=== PATIENT | male | born 1965 | race Caucasian/White ===

== ENCOUNTER 2020-11-15 03:06 | Emergency (ER) | payer OTHER ==
--- NOTE | 2020-11-15 03:33 | EDM.PDOC ---
ED HPI GENERAL MEDICAL PROBLEM - General Chief Complaint: Neurological Problem Stated Complaint: neuro problem Time Seen by Provider: 11/15/20 03:12 Source of Information: Reports: Patient, Family History Limitations: Reports: Other (Patient cannot recall incident) - History of Present Illness INITIAL COMMENTS - FREE TEXT/NARRATIVE: Patient brought here by EMS after having what appeared to be a generalized tonic/clonic seizure while in bed at home. witnessed event. Lasted several minutes. Was relatively unresponsive until EMS arrived around 30-45 min later. Post-ictal like behavior per EMS. By time he arrived to ER he was oriented to self/knew date/knew but still unable to say year/month. No history of seizures. Normal day for him yesterday. Denies any recent health changes/trauma/hitting head. Says he is healthy. No history of drug use. - Related Data Allergies Allergy/AdvReac Type Severity Reaction Status Date / Time No Known Allergies Allergy Verified 11/15/20 03:09 Home Meds: Home Meds . [No Known Home Meds] 11/15/20 [History] Past Medical History - Past Health History Medical/Surgical History: Denies Medical/Surgical History Social & Family History - Tobacco Use Tobacco Use Status *Q: Current Every Day Tobacco User Tobacco Use Within Last Twelve Months: Smokeless Tobacco - Caffeine Use Caffeine Use: Reports: Coffee - Alcohol Use Alcohol Use Frequency: Daily (1-2 daily beers) - Recreational Drug Use Recreational Drug Use: No Drug Use in Last 12 Months: No ED ROS GENERAL - Review of Systems Review Of Systems: Comprehensive ROS is negative, except as noted in HPI. ED EXAM, GENERAL - Physical Exam Exam: See Below Exam Limited By: No Limitations General Appearance: Alert, WD/WN, No Apparent Distress Eye Exam: Bilateral Eye: EOMI, PERRL Ears: Normal External Exam, Normal Canal, Hearing Grossly Normal Nose: No: Nasal Deformity, Nasal Swelling, Nasal Drainage Throat/Mouth: Normal Lips, Normal Voice, No Airway Compromise, Other (bite injury to tongue) Head: Atraumatic, Normocephalic Neck: Normal Inspection, Supple, Non-Tender, Full Range of Motion Respiratory/Chest: No Respiratory Distress, Lungs Clear, Normal Breath Sounds, No Accessory Muscle Use Cardiovascular: Regular Rate, Rhythm, No Edema, No Murmur GI/Abdominal: Soft, Non-Tender, No Distention, Pelvis Stable (Male) Exam: Deferred Rectal (Males) Exam: Deferred Back Exam: Normal Inspection Extremities: Normal Inspection, Normal Range of Motion, Non-Tender, No Pedal Edema, Normal Capillary Refill Neurological: Alert, Oriented, CN II-XII Intact, Normal Cognition, No Motor/Sensory Deficits, Other (reflexes 1/4) Psychiatric: Normal Affect Skin Exam: Warm, Dry, Intact, Normal Color Course - Vital Signs Last Recorded V/S: Last Vital Signs Temp 36.8 C 11/15/20 03:10 Pulse 75 11/15/20 06:41 Resp 15 11/15/20 06:41 BP 124/76 11/15/20 06:41 Pulse Ox 98 11/15/20 06:41 - Orders/Labs/Meds Orders: Active Orders 24 hr Category Date Time Status Head wo Cont [CT] Stat Exams 11/15/20 03:14 Taken Sodium Chloride 0.9% [Normal Saline] 500 ml Med 11/15/20 03:45 Active IV .BOLUS Medication Orders Sodium Chloride (Normal Saline) 500 mls @ 125 mls/hr IV .BOLUS NARCISO Last Admin: 11/15/20 03:50 Dose: 125 mls/hr Documented by: DEV Labs: Laboratory Tests 11/15/20 11/15/20 11/15/20 Range/Units 03:20 03:20 03:20 WBC 6.7 (4.0-10.2) K/uL RBC 4.69 (4.33-5.41) M/uL Hgb 16.0 (13.1-16.8) g/dL Hct 43.5 (39.0-49.0) % MCV 92.8 (84.0-98.0) fL MCH 34.1 H (28.2-33.3) pg MCHC 36.8 H (31.7-36.0) g/dL RDW 11.7 (11.2-14.1) % Plt Count 160 (150-350) K/uL Neut % (Auto) 68.8 (45.0-80.0) % Lymph % (Auto) 14.6 (10.0-50.0) % [place] % (Auto) 9.6 (2.0-14.0) % Eos % (Auto) 6.3 H (0.0-5.0) % Baso % (Auto) 0.7 (0.0-2.0) % Neut # (Auto) 4.61 (1.40-7.00) K/uL Lymph # (Auto) 0.98 (0.50-3.50) K/uL [place] # (Auto) 0.64 (0.00-1.00) K/uL Eos # (Auto) 0.42 (0.00-0.50) K/uL Baso # (Auto) 0.05 (0.00-0.20) K/uL Sodium 140 (136-145) mmol/L Potassium 4.3 (3.5-5.1) mmol/L Chloride 105 (98-107) mmol/L Carbon Dioxide 28.8 (21.0-32.0) mmol/L Anion Gap 6.2 L (7-15) meq/L BUN 17 (7-18) mg/dL Creatinine 1.13 (0.51-1.17) mg/dL Est Cr Clr Drug Dosing TNP Estimated GFR (MDRD) > 60 mL/min Glucose 92 (70-99) mg/dL Lactic Acid 1.2 (0.4-2.0) mmol/L Calcium 8.8 (8.5-10.1) mg/dL Magnesium 2.1 (1.8-2.4) mg/dL Total Bilirubin 0.6 (0.2-1.0) mg/dL AST 21 (15-37) U/L ALT 32 (12-78) U/L Alkaline Phosphatase 71 (46-116) IU/L Total Protein 6.6 (6.4-8.2) g/dL Albumin 3.8 (3.4-5.0) g/dL Specimen Type Urine Color Urine Appearance Urine pH (5.0-9.0) Ur Specific [place] (1.005-1.030) Urine Protein (NEGATIVE) mg/dL Urine Glucose (UA) (NEGATIVE) mg/dL Urine Ketones (NEGATIVE) mg/dL Urine Occult Blood (NEGATIVE) Urine Nitrite (NEGATIVE) Urine Bilirubin (NEGATIVE) Urine Urobilinogen (0.2-1.0) E.U./dL Ur Leukocyte Esterase (NEGATIVE) Urine RBC /HPF Urine WBC /HPF Ur Epithelial Cells /LPF Urine Bacteria (NONE TO FEW) /HPF Urine Other 11/15/20 Range/Units 03:30 WBC (4.0-10.2) K/uL RBC (4.33-5.41) M/uL Hgb (13.1-16.8) g/dL Hct (39.0-49.0) % MCV (84.0-98.0) fL MCH (28.2-33.3) pg MCHC (31.7-36.0) g/dL RDW (11.2-14.1) % Plt Count (150-350) K/uL Neut % (Auto) (45.0-80.0) % Lymph % (Auto) (10.0-50.0) % [place] % (Auto) (2.0-14.0) % Eos % (Auto) (0.0-5.0) % Baso % (Auto) (0.0-2.0) % Neut # (Auto) (1.40-7.00) K/uL Lymph # (Auto) (0.50-3.50) K/uL [place] # (Auto) (0.00-1.00) K/uL Eos # (Auto) (0.00-0.50) K/uL Baso # (Auto) (0.00-0.20) K/uL Sodium (136-145) mmol/L Potassium (3.5-5.1) mmol/L Chloride (98-107) mmol/L Carbon Dioxide (21.0-32.0) mmol/L Anion Gap (7-15) meq/L BUN (7-18) mg/dL Creatinine (0.51-1.17) mg/dL Est Cr Clr Drug Dosing Estimated GFR (MDRD) mL/min Glucose (70-99) mg/dL Lactic Acid (0.4-2.0) mmol/L Calcium (8.5-10.1) mg/dL Magnesium (1.8-2.4) mg/dL Total Bilirubin (0.2-1.0) mg/dL AST (15-37) U/L ALT (12-78) U/L Alkaline Phosphatase (46-116) IU/L Total Protein (6.4-8.2) g/dL Albumin (3.4-5.0) g/dL Specimen Type Urinblad Urine Color Yellow Urine Appearance Cloudy Urine pH 6.5 (5.0-9.0) Ur Specific [place] 1.025 (1.005-1.030) Urine Protein 30 H (NEGATIVE) mg/dL Urine Glucose (UA) Negative (NEGATIVE) mg/dL Urine Ketones Negative (NEGATIVE) mg/dL Urine Occult Blood Small H (NEGATIVE) Urine Nitrite Negative (NEGATIVE) Urine Bilirubin Negative (NEGATIVE) Urine Urobilinogen 0.2 (0.2-1.0) E.U./dL Ur Leukocyte Esterase Negative (NEGATIVE) Urine RBC 0-5 /HPF Urine WBC 0-5 /HPF Ur Epithelial Cells Not seen /LPF Urine Bacteria Not seen (NONE TO FEW) /HPF Urine Other See note H Meds: Medications Generic Name Dose Route Start Last Admin Trade Name Freq PRN Reason Stop Dose Admin Sodium Chloride 500 mls @ 125 mls/hr 11/15/20 03:45 11/15/20 03:50 Normal Saline IV 125 mls/hr .BOLUS NARCISO Administration - Re-Assessments/Exams Free Text/Narrative Re-Assessment/Exam: 11/15/20 03:33 Patient able to transfer well but a little wobbly when he first stood up from bed. Basic labs and CT of head ordered and unremarkable. Observe in ER. Patient refused observation admission 11/15/20 08:52 Patient monitored for rest of night. No acute changes noted. No new seizure activity. Vital signs stable. No specific cause for the isolated seizure identified at this time. OK to return home. Precautions reviewed. Follow up appointment with at clinic confirmed for Wednesday of next week. Patient to continue to observe for changes and is to follow up in ER if he has any acute changes/concerns. Departure - Departure Time of Disposition: 08:50 Disposition: Home, Self-Care 01 Condition: Good Clinical Impression: Seizure - Discharge Information *PRESCRIPTION DRUG MONITORING PROGRAM REVIEWED*: Not Applicable *COPY OF PRESCRIPTION DRUG MONITORING REPORT IN PATIENT CAT[place]: Not Applicable Instructions: Seizure, Adult Referrals: PCP,None [Primary Care Provider] - Forms: ED Department Discharge Additional Instructions: Take it easy. Follow up Wednesday at 2:30pm with and our [facility] clinic. Arrive early 15 min early. She can get you situated with a plan to obtain an EEG/referral to Neurology and possible MRI if indicated. Return to ER if you have sudden problems. No driving until you are cleared by . Sepsis Event Note (ED) - Evaluation Sepsis Screening Result: No Definite Risk - Focused Exam Vital Signs: Vital Signs Temp Pulse Resp BP Pulse Ox 11/15/20 06:41 75 15 124/76 98 11/15/20 05:43 67 12 113/64 98 11/15/20 04:00 74 16 128/85 97 11/15/20 03:10 36.8 C 94 13 143/71 H 93 L - My Orders Last 24 Hours: My Active Orders 11/15/20 03:14 Head wo Cont [CT] Stat 11/15/20 03:45 Sodium Chloride 0.9% [Normal Saline] 500 ml IV .BOLUS - Assessment/Plan Last 24 Hours: My Active Orders 11/15/20 03:14 Head wo Cont [CT] Stat 11/15/20 03:45 Sodium Chloride 0.9% [Normal Saline] 500 ml IV .BOLUS
[2020-11-15 03:45] LABS: ANION GAP 6.2 meq/L (7-15); CHLORIDE,CL 105 mmol/L (98-107); SODIUM,NA 140 mmol/L (136-145)
[2020-11-15] MEDS: Sodium Chloride 0.9% 500 ML IV SCH (03:50)
== END 2020-11-15 09:15 | disposition home or self-care (01) ==
LOC: LL.ED 03:06
DX: R56.9 Unspecified convulsions (principal); Z72.0 Tobacco use
CPT/HCPCS: 36415; 70450; 80053; 81001; 83605; 83735; 85025; 99285; J7040; 99284

== ENCOUNTER 2021-01-08 22:54 | Observation (INO) | payer OTHER ==
[2021-01-08] MEDS ORDERED: Sodium Chloride 0.9% 10 ML Syringe FLUSH PRN (23:43)
--- NOTE | 2021-01-08 23:58 | EDM.PDOC ---
ED HPI GENERAL MEDICAL PROBLEM - General Chief Complaint: Neurological Problem Stated Complaint: seizure Time Seen by Provider: 01/08/21 23:30 Source of Information: Reports: Patient History Limitations: Reports: No Limitations - History of Present Illness INITIAL COMMENTS - FREE TEXT/NARRATIVE: Pt. presents to ER following seizure that lasted approx. 10 min. Pt. states that the episode happened when he had been sleeping for 15 minutes or so. She states that his entire body "tensed up" and his head was rhythmically moving. Denied any significant movement of the extremities. EMS was summoned. Pt. appeared postictal during his transport to the ER. he became more alert during transport and was answering questions on arrival to ER. Pt. had a similar episode on 11/15/2020 while lying in bed. She states that he was brought to ER and had cursory labs and CT of his head which were all within normal limits. He did see neurology and underwent an MRI and sleep deprived EEG both of which were negative according to . Pt. states that he was seen in [facility] ER today. She states that the patient was confused and chilled throughout the day today which is why they went to the ER in [facility]. She states that she brought him to [facility] ER where he was examined, but no testing was performed at that time as he was answering all questions appropriately during his hospital stay and his neuro exam was normal. She states that he was again somewhat confused/had short term memory loss after coming home after his ER visit. Pt. denies any other symptoms. He did bite his tongue. He was not incontinent of urine. He denies any recent head trauma. No fever or chills. No chest pain or shortness or breath. No cough or chest congestion. Denies any sore throat, rhi norrhea, or ear pain. No nausea, vomiting, or diarrhea. denies any problems with speech today. He has been ambulating normally. No facial droop noted. Denies any numbness/tingling in extremities or face. Offers no complaints, other than feeling "foggy" and fatigued since the event tonight. Onset: Today Location: Reports: Generalized Headache Pain Score (Numeric/FACES): 3 - Related Data Allergies Allergy/AdvReac Type Severity Reaction Status Date / Time No Known Allergies Allergy Verified 01/08/21 23:25 Home Meds: Home Meds . [No Known Home Meds] 11/15/20 [History] Past Medical History - Past Health History Medical/Surgical History: Denies Medical/Surgical History Social & Family History - Caffeine Use Caffeine Use: Reports: Coffee, Soda ED ROS GENERAL - Review of Systems Review Of Systems: See Below Constitutional: Reports: Chills. Denies: Fever, Weakness, Fatigue, Diaphoresis HEENT: Reports: No Symptoms Respiratory: Reports: No Symptoms. Denies: Shortness of Breath, Cough, Sputum Cardiovascular: Reports: No Symptoms. Denies: Chest Pain, Dyspnea on Exertion, Edema, Lightheadedness, Orthopnea, Palpitations, PND Endocrine: Reports: No Symptoms. Denies: Polydypsia, Polyuria GI/Abdominal: Reports: No Symptoms. Denies: Black Stool, Bloody Stool : Reports: No Symptoms Musculoskeletal: Reports: No Symptoms Skin: Reports: No Symptoms Neurological: Reports: Confusion, Headache (since episode tonight), Seizure, Other (No neucal rigidity or meningeal signs.). Denies: Dizziness, Numbness, Syncope, Tingling, Tremors, Difficulty Walking, Weakness, Change in Speech, Gait Disturbance Psychiatric: Reports: No Symptoms Hematologic/Lymphatic: Reports: No Symptoms Immunologic: Reports: No Symptoms ED EXAM, GENERAL - Physical Exam Exam: See Below Exam Limited By: No Limitations General Appearance: Alert, WD/WN, No Apparent Distress Eye Exam: Bilateral Eye: EOMI, Normal Fundi, Normal Inspection, PERRL Ears: Normal External Exam, Normal Canal, Hearing Grossly Normal, Normal TMs Ear Exam: Bilateral Ear: Auricle Normal, Canal Normal, TM normal Nose: Normal Inspection, Normal Mucosa, No Blood Throat/Mouth: Normal Inspection, Normal Lips, Normal Teeth, Normal Gums, Normal Oropharynx, Normal Voice, No Airway Compromise Head: Atraumatic, Normocephalic Neck: Normal Inspection, Supple, Non-Tender, Full Range of Motion Respiratory/Chest: No Respiratory Distress, Lungs Clear, Normal Breath Sounds, No Accessory Muscle Use, Chest Non-Tender Cardiovascular: Normal Peripheral Pulses, Regular Rate, Rhythm, No Edema, No Gallop, No JVD, No Murmur, No Rub GI/Abdominal: Soft, Non-Tender, No Distention, No Mass (Male) Exam: Deferred Back Exam: Normal Inspection, Full Range of Motion Extremities: Normal Inspection, Normal Range of Motion, Non-Tender, No Pedal Edema, Normal Capillary Refill Neurological: Alert, Oriented, CN II-XII Intact, Normal Cognition, Normal Reflexes, No Motor/Sensory Deficits, Other (Follows commands. No pronator drift. No upper or lower extremity weakness. No facial droop. ) Psychiatric: Normal Mood, Depressed Mood, Flat Affect Skin Exam: Warm, Dry, Intact, Normal Color, No Rash #1 Interpretation Rhythm: NSR [place]: Normal P-Wave: Present QRS: Normal ST-T: Normal QT: Normal Course - Vital Signs Last Recorded V/S: Last Vital Signs Temp 36.8 C 01/08/21 23:45 Pulse 67 01/09/21 01:00 Resp 12 01/09/21 01:00 BP 121/65 01/09/21 01:00 Pulse Ox 96 01/09/21 01:00 - Orders/Labs/Meds Orders: Active Orders 24 hr Category Date Time Status Patient Status [ADT] Routine ADT 01/09/21 01:09 Active EKG Documentation Completion [RC] ASDIRECTED Care 01/08/21 23:46 Active Peripheral IV Care [RC] . DIRECTED Care 01/08/21 23:46 Active Chest 1V Frontal [CR] Stat Exams 01/08/21 23:45 Taken Head wo Cont [CT] Stat Exams 01/08/21 23:45 Taken CULTURE BLOOD [BC] Stat Lab 01/08/21 23:45 Received SALICYLATE [REF] Stat Lab 01/09/21 00:40 Received Sodium Chloride 0.9% [Saline Flush] Med 01/08/21 23:43 Active 10 ml FLUSH ASDIRECTED PRN Blood Culture x2 Reflex Set [OM.PC] Stat Oth 01/08/21 23:45 Ordered Isolation [COMM] Routine Oth 01/08/21 23:46 Active Peripheral IV Insertion Adult [OM.PC] Routine Oth 01/08/21 23:45 Ordered EKG 12 Lead [EK] Stat Ther 01/08/21 23:44 Ordered Medication Orders Levetiracetam (Levetiracetam 500 Mg Tab) 500 mg PO BID NARCISO Magnesium Oxide (Magnesium Oxide 400 Mg Tab) 400 mg PO BID NARCISO Sodium Chloride (Sodium Chloride 0.9% 10 Ml Syringe) 10 ml FLUSH ASDIRECTED PRN PRN Reason: Keep Vein Open Labs: Laboratory Tests 01/08/21 01/08/21 01/08/21 Range/Units 00:15 00:15 00:15 WBC (4.0-10.2) K/uL RBC (4.33-5.41) M/uL Hgb (13.1-16.8) g/dL Hct (39.0-49.0) % MCV (84.0-98.0) fL MCH (28.2-33.3) pg MCHC (31.7-36.0) g/dL RDW (11.2-14.1) % Plt Count (150-350) K/uL Neut % (Auto) (45.0-80.0) % Lymph % (Auto) (10.0-50.0) % [place] % (Auto) (2.0-14.0) % Eos % (Auto) (0.0-5.0) % Baso % (Auto) (0.0-2.0) % Neut # (Auto) (1.40-7.00) K/uL Lymph # (Auto) (0.50-3.50) K/uL [place] # (Auto) (0.00-1.00) K/uL Eos # (Auto) (0.00-0.50) K/uL Baso # (Auto) (0.00-0.20) K/uL Sodium (136-145) mmol/L Potassium (3.5-5.1) mmol/L Chloride (98-107) mmol/L Carbon Dioxide (21.0-32.0) mmol/L Anion Gap (7-15) meq/L BUN (7-18) mg/dL Creatinine (0.51-1.17) mg/dL Est Cr Clr Drug Dosing mL/min Estimated GFR (MDRD) mL/min Glucose (70-99) mg/dL Lactic Acid (0.4-2.0) mmol/L Calcium (8.5-10.1) mg/dL Phosphorus (2.6-4.7) mg/dL Magnesium (1.8-2.4) mg/dL Total Bilirubin (0.2-1.0) mg/dL AST (15-37) U/L ALT (12-78) U/L Alkaline Phosphatase (46-116) IU/L Troponin I High Sens (<=76) ng/L C-Reactive Protein (<=0.9) mg/dL Total Protein (6.4-8.2) g/dL Albumin (3.4-5.0) g/dL TSH, Ultra Sensitive (0.358-3.740) mIU/mL Specimen Type Urincc Urine Color Yellow Urine Appearance Clear Urine pH 7.0 (5.0-9.0) Ur Specific [place] 1.025 (1.005-1.030) Urine Protein 100 H (NEGATIVE) mg/dL Urine Glucose (UA) Negative (NEGATIVE) mg/dL Urine Ketones 15 H (NEGATIVE) mg/dL Urine Occult Blood Trace-intact H (NEGATIVE) Urine Nitrite Negative (NEGATIVE) Urine Bilirubin Negative (NEGATIVE) Urine Urobilinogen 0.2 (0.2-1.0) E.U./dL Ur Leukocyte Esterase Negative (NEGATIVE) Urine RBC 0-5 /HPF Urine WBC 0-5 /HPF Ur Epithelial Cells Rare /LPF Urine Bacteria Rare (NONE TO FEW) /HPF Urine Other See note H Urine Opiates Screen Negative (NEGATIVE) Ur Buprenorphine Scrn Negative (NEGATIVE) Ur Oxycodone Screen Negative (NEGATIVE) Ur EDDP (Meth Metab) Negative (NEGATIVE) Ur Barbiturates Screen Negative (NEGATIVE) Ur Tricyclics Screen Negative (NEGATIVE) Ur Amphetamine Screen Negative (NEGATIVE) U Methamphetamines Scrn Negative (NEGATIVE) Urine MDMA Screen Negative (NEGATIVE) U Benzodiazepines Scrn Negative (NEGATIVE) U Cocaine Metab Screen Negative (NEGATIVE) U Marijuana (THC) Screen Negative (NEGATIVE) Ethyl Alcohol (0.000-0.080) g/dL SARS-CoV-2 RNA (ELIANA) Negative (NEGATIVE) 01/08/21 01/08/21 01/08/21 Range/Units 23:45 23:45 23:45 WBC 7.6 (4.0-10.2) K/uL RBC 4.62 (4.33-5.41) M/uL Hgb 15.5 (13.1-16.8) g/dL Hct 42.3 (39.0-49.0) % MCV 91.6 (84.0-98.0) fL MCH 33.5 H (28.2-33.3) pg MCHC 36.6 H (31.7-36.0) g/dL RDW 11.4 (11.2-14.1) % Plt Count 163 (150-350) K/uL Neut % (Auto) 78.9 (45.0-80.0) % Lymph % (Auto) 12.9 (10.0-50.0) % [place] % (Auto) 7.0 (2.0-14.0) % Eos % (Auto) 0.8 (0.0-5.0) % Baso % (Auto) 0.4 (0.0-2.0) % Neut # (Auto) 5.98 (1.40-7.00) K/uL Lymph # (Auto) 0.98 (0.50-3.50) K/uL [place] # (Auto) 0.53 (0.00-1.00) K/uL Eos # (Auto) 0.06 (0.00-0.50) K/uL Baso # (Auto) 0.03 (0.00-0.20) K/uL Sodium 137 (136-145) mmol/L Potassium 4.2 (3.5-5.1) mmol/L Chloride 103 (98-107) mmol/L Carbon Dioxide 24.9 (21.0-32.0) mmol/L Anion Gap 9.1 (7-15) meq/L BUN 13 (7-18) mg/dL Creatinine 0.94 (0.51-1.17) mg/dL Est Cr Clr Drug Dosing 92.76 mL/min Estimated GFR (MDRD) > 60 mL/min Glucose 119 H (70-99) mg/dL Lactic Acid 1.1 (0.4-2.0) mmol/L Calcium 8.0 L (8.5-10.1) mg/dL Phosphorus 2.1 L (2.6-4.7) mg/dL Magnesium 2.1 (1.8-2.4) mg/dL Total Bilirubin 0.7 (0.2-1.0) mg/dL AST 17 (15-37) U/L ALT 20 (12-78) U/L Alkaline Phosphatase 82 (46-116) IU/L Troponin I High Sens 5 (<=76) ng/L C-Reactive Protein < 0.2 (<=0.9) mg/dL Total Protein 6.3 L (6.4-8.2) g/dL Albumin 3.8 (3.4-5.0) g/dL TSH, Ultra Sensitive 1.647 (0.358-3.740) mIU/mL Specimen Type Urine Color Urine Appearance Urine pH (5.0-9.0) Ur Specific [place] (1.005-1.030) Urine Protein (NEGATIVE) mg/dL Urine Glucose (UA) (NEGATIVE) mg/dL Urine Ketones (NEGATIVE) mg/dL Urine Occult Blood (NEGATIVE) Urine Nitrite (NEGATIVE) Urine Bilirubin (NEGATIVE) Urine Urobilinogen (0.2-1.0) E.U./dL Ur Leukocyte Esterase (NEGATIVE) Urine RBC /HPF Urine WBC /HPF Ur Epithelial Cells /LPF Urine Bacteria (NONE TO FEW) /HPF Urine Other Urine Opiates Screen (NEGATIVE) Ur Buprenorphine Scrn (NEGATIVE) Ur Oxycodone Screen (NEGATIVE) Ur EDDP (Meth Metab) (NEGATIVE) Ur Barbiturates Screen (NEGATIVE) Ur Tricyclics Screen (NEGATIVE) Ur Amphetamine Screen (NEGATIVE) U Methamphetamines Scrn (NEGATIVE) Urine MDMA Screen (NEGATIVE) U Benzodiazepines Scrn (NEGATIVE) U Cocaine Metab Screen (NEGATIVE) U Marijuana (THC) Screen (NEGATIVE) Ethyl Alcohol 0.002 (0.000-0.080) g/dL SARS-CoV-2 RNA (ELIANA) (NEGATIVE) Meds: Medications Generic Name Dose Route Start Last Admin Trade Name Freq PRN Reason Stop Dose Admin Levetiracetam 500 mg 01/09/21 08:00 Levetiracetam 500 Mg Tab PO BID NARCISO Magnesium Oxide 400 mg 01/09/21 08:00 Magnesium Oxide 400 Mg Tab PO BID NARCISO Sodium Chloride 10 ml 01/08/21 23:43 Sodium Chloride 0.9% 10 Ml Syringe FLUSH ASDIRECTED PRN Keep Vein Open Discontinued Medications Generic Name Dose Route Start Last Admin Trade Name Freq PRN Reason Stop Dose Admin Levetiracetam 1,500 mg 01/09/21 01:09 01/09/21 01:32 Levetiracetam 500 Mg Tab PO 01/09/21 01:10 1,500 mg ONETIME ONE Administration - Radiology Interpretation Free Text/Narrative:: chest x-ray negative for acute pathology. CT brain negative for acute pathology. Departure - Departure Time of Disposition: 01:41 Disposition: Refer to Observation Clinical Impression: Seizure - Discharge Information Sepsis Event Note (ED) - Focused Exam Vital Signs: Vital Signs Temp Pulse Resp BP Pulse Ox 01/09/21 01:00 67 12 121/65 96 01/09/21 00:20 73 16 128/72 95 01/08/21 23:45 36.8 C 78 14 136/73 96 01/08/21 23:15 36.9 C 80 14 128/70 97 01/08/21 23:08 36.9 C 83 16 139/84 97 - Problem List Review Problem List Initiated/Reviewed/Updated: Yes - My Orders Last 24 Hours: My Active Orders 01/08/21 23:43 Sodium Chloride 0.9% [Saline Flush] 10 ml FLUSH ASDIRECTED PRN 01/08/21 23:44 EKG 12 Lead [EK] Stat 01/08/21 23:45 Chest 1V Frontal [CR] Stat Head wo Cont [CT] Stat CULTURE BLOOD [BC] Stat Blood Culture x2 Reflex Set [OM.PC] Stat Peripheral IV Insertion Adult [OM.PC] Routine 01/08/21 23:46 EKG Documentation Completion [RC] ASDIRECTED Peripheral IV Care [RC] . DIRECTED Isolation [COMM] Routine 01/09/21 00:40 SALICYLATE [REF] Stat 01/09/21 01:09 Patient Status [ADT] Routine - Assessment/Plan Last 24 Hours: My Active Orders 01/08/21 23:43 Sodium Chloride 0.9% [Saline Flush] 10 ml FLUSH ASDIRECTED PRN 01/08/21 23:44 EKG 12 Lead [EK] Stat 01/08/21 23:45 Chest 1V Frontal [CR] Stat Head wo Cont [CT] Stat CULTURE BLOOD [BC] Stat Blood Culture x2 Reflex Set [OM.PC] Stat Peripheral IV Insertion Adult [OM.PC] Routine 01/08/21 23:46 EKG Documentation Completion [RC] ASDIRECTED Peripheral IV Care [RC] . DIRECTED Isolation [COMM] Routine 01/09/21 00:40 SALICYLATE [REF] Stat 01/09/21 01:09 Patient Status [ADT] Routine Plan: Dr. Mayorga from [facility] Neurology was consulted. He advised starting patient on keppra. He was given 1500mg PO loading dose and then started on 500mg BID. He was resistive to starting medication, but was willing to start once he was told he would need to be seizure free for 6 months on medication before he can drive again. Pt. will be admitted observation, in the event that he exhibits further seizure activity before his keppra level is therapeutic. [place] [facility] [address] Pt. potassium was mildly decreased and was repleted orally. Pt. indicates that he is a code 1. In ER, pt. O2 sat was noted to dip into the 90% range when sleeping. Will keep him on pulse oximetry and tele. Both seizures happened shortly after falling asleep. He will likely need a sleep study as an outpatient.
[2021-01-09 00:21] LABS: ANION GAP 9.1 meq/L (7-15); CHLORIDE,CL 103 mmol/L (98-107); SODIUM,NA 137 mmol/L (136-145)
[2021-01-09 00:38] LABS: BARBITURATE SCREEN,URINE NEGATIVE (NEGATIVE); BENZODIAZEPINES SCREEN,URINE NEGATIVE (NEGATIVE); EDDP,URINE SCREEN NEGATIVE (NEGATIVE); TCA SCREEN,URINE NEGATIVE (NEGATIVE); THC SCREEN,URINE 50 NG/ML NEGATIVE (NEGATIVE)
[2021-01-09 00:41] LABS: BUPRENORPHINE SCREEN,URINE NEGATIVE (NEGATIVE)
[2021-01-09] MEDS ORDERED: levETIRAcetam 500 MG Tab PO ONE (01:09)
[2021-01-09] MEDS ORDERED: Magnesium Oxide 400 MG Tab PO SCH (08:00)
[2021-01-09] MEDS ORDERED: levETIRAcetam 500 MG Tab PO SCH (08:00)
--- NOTE | 2021-01-10 00:18 | PCM.DCSUM1 ---
Discharge Summary - Hospital Course Free Text/Narrative:: Pt. presented to ER and was admitted observation following a seizure. This was the second seizure that the patient had experienced, the last episode being in Oct. states that it lasted around 10 min and was generalized. he was postictal for some time following the event. EMS was summoned. Pt. did bite his tongue but was not incontinent. Workup in ER included head CT, labs, EKG, and chest x-ray, all of which was essentially normal[place] observe the patient overnight in the hospital. Pt. has been seen by Dr. Waller. He has had a sleep deprived EEG as well as an MRI which was negative. Decision was made at that time not to start any medications. Per discussion with Dr. Mayorga early this AM, decision was made to start pt. on Keppra 500mg BID. He was loaded with 1500mg PO in ER. He had no further seizure activity, and was alert and oriented during his stay. Vitals were all within normal limits. Pt. denied any symptoms at time of discharge other than fatigue. Diagnosis: Stroke: No - Discharge Data Discharge Date: 01/09/21 Discharge Disposition: Home, Self-Care 01 Condition: Good - Referral to Home Health Primary Care Physician: Gayle Mustafa MD - Discharge Diagnosis/Problem(s) (1) Seizure SNOMED Code(s): 42841981 ICD Code: R56.9 - UNSPECIFIED CONVULSIONS Status: Acute - Discharge Plan Prescriptions/Med Rec: levETIRAcetam [Keppra] 500 mg PO BID 30 Days #60 tablet Home Medications: Home Meds levETIRAcetam [Keppra] 500 mg PO BID 30 Days #60 tablet 01/09/21 [Rx] Patient Handouts: Seizure, Adult, Csal-dl-Moum Forms: ED Department Discharge Referrals: Gayle Mustafa MD [Primary Care Provider] - - Discharge Summary/Plan Comment DC Time >30 min.: Yes Total # of Minutes for Discharge Time: 45 Discharge Summary/Plan Comment: Pt. was discharged. Keppra 500mg twice daily. Nursing is arranging follow-up with neurology TRACY. Currently scheduled for January. No driving for 6 month, or as directed by neurology. Advised to return to ER or call 911 if he develops recurrent seizure activity that lasts longer than 5 minutes. Advised to start a magnesium supplement. Pt. was advised to discuss having a sleep study, as his O2 sat was decreasing when sleeping. - General Info Functional Status: Reports: Pain Controlled - Review of Systems General: Reports: Fatigue. Denies: Fever, Weakness, Malaise, Chills HEENT: Reports: No Symptoms Pulmonary: Reports: No Symptoms Cardiovascular: Reports: No Symptoms Gastrointestinal: Reports: No Symptoms Genitourinary: Reports: No Symptoms Musculoskeletal: Reports: No Symptoms Skin: Reports: No Symptoms Neurological: Reports: No Symptoms, Other (See HPI.) Psychiatric: Reports: No Symptoms - Patient Data Vitals - Most Recent: Last Vital Signs Temp 36.7 C 01/09/21 08:00 Pulse 77 01/09/21 08:00 Resp 16 01/09/21 08:00 BP 117/68 01/09/21 08:00 Pulse Ox 97 01/09/21 08:00 Weight - Most Recent: 88.042 kg I&O - Last 24 hours: Intake & Output 01/09/21 01/09/21 01/10/21 14:59 22:59 06:59 Intake Total 180 Balance 180 Lab Results - Last 24 hrs: Laboratory Results - last 24 hr 01/08/21 01/08/21 01/08/21 Range/Units 00:15 00:15 00:15 Sodium (136-145) mmol/L Potassium (3.5-5.1) mmol/L Chloride (98-107) mmol/L Carbon Dioxide (21.0-32.0) mmol/L Anion Gap (7-15) meq/L BUN (7-18) mg/dL Creatinine (0.51-1.17) mg/dL Est Cr Clr Drug Dosing mL/min Estimated GFR (MDRD) mL/min Glucose (70-99) mg/dL Lactic Acid (0.4-2.0) mmol/L Calcium (8.5-10.1) mg/dL Phosphorus (2.6-4.7) mg/dL Magnesium (1.8-2.4) mg/dL Total Bilirubin (0.2-1.0) mg/dL AST (15-37) U/L ALT (12-78) U/L Alkaline Phosphatase (46-116) IU/L Troponin I High Sens (<=76) ng/L C-Reactive Protein (<=0.9) mg/dL Total Protein (6.4-8.2) g/dL Albumin (3.4-5.0) g/dL TSH, Ultra Sensitive (0.358-3.740) mIU/mL Specimen Type Urincc Urine Color Yellow Urine Appearance Clear Urine pH 7.0 (5.0-9.0) Ur Specific [place] 1.025 (1.005-1.030) Urine Protein 100 H (NEGATIVE) mg/dL Urine Glucose (UA) Negative (NEGATIVE) mg/dL Urine Ketones 15 H (NEGATIVE) mg/dL Urine Occult Blood Trace-intact H (NEGATIVE) Urine Nitrite Negative (NEGATIVE) Urine Bilirubin Negative (NEGATIVE) Urine Urobilinogen 0.2 (0.2-1.0) E.U./dL Ur Leukocyte Esterase Negative (NEGATIVE) Urine RBC 0-5 /HPF Urine WBC 0-5 /HPF Ur Epithelial Cells Rare /LPF Urine Bacteria Rare (NONE TO FEW) /HPF Urine Other See note H Urine Opiates Screen Negative (NEGATIVE) Ur Buprenorphine Scrn Negative (NEGATIVE) Ur Oxycodone Screen Negative (NEGATIVE) Ur EDDP (Meth Metab) Negative (NEGATIVE) Ur Barbiturates Screen Negative (NEGATIVE) Ur Tricyclics Screen Negative (NEGATIVE) Ur Amphetamine Screen Negative (NEGATIVE) U Methamphetamines Scrn Negative (NEGATIVE) Urine MDMA Screen Negative (NEGATIVE) U Benzodiazepines Scrn Negative (NEGATIVE) U Cocaine Metab Screen Negative (NEGATIVE) U Marijuana (THC) Screen Negative (NEGATIVE) Ethyl Alcohol (0.000-0.080) g/dL SARS-CoV-2 RNA (ELIANA) Negative (NEGATIVE) 01/08/21 01/08/21 Range/Units 23:45 23:45 Sodium 137 (136-145) mmol/L Potassium 4.2 (3.5-5.1) mmol/L Chloride 103 (98-107) mmol/L Carbon Dioxide 24.9 (21.0-32.0) mmol/L Anion Gap 9.1 (7-15) meq/L BUN 13 (7-18) mg/dL Creatinine 0.94 (0.51-1.17) mg/dL Est Cr Clr Drug Dosing 92.76 mL/min Estimated GFR (MDRD) > 60 mL/min Glucose 119 H (70-99) mg/dL Lactic Acid 1.1 (0.4-2.0) mmol/L Calcium 8.0 L (8.5-10.1) mg/dL Phosphorus 2.1 L (2.6-4.7) mg/dL Magnesium 2.1 (1.8-2.4) mg/dL Total Bilirubin 0.7 (0.2-1.0) mg/dL AST 17 (15-37) U/L ALT 20 (12-78) U/L Alkaline Phosphatase 82 (46-116) IU/L Troponin I High Sens 5 (<=76) ng/L C-Reactive Protein < 0.2 (<=0.9) mg/dL Total Protein 6.3 L (6.4-8.2) g/dL Albumin 3.8 (3.4-5.0) g/dL TSH, Ultra Sensitive 1.647 (0.358-3.740) mIU/mL Specimen Type Urine Color Urine Appearance Urine pH (5.0-9.0) Ur Specific [place] (1.005-1.030) Urine Protein (NEGATIVE) mg/dL Urine Glucose (UA) (NEGATIVE) mg/dL Urine Ketones (NEGATIVE) mg/dL Urine Occult Blood (NEGATIVE) Urine Nitrite (NEGATIVE) Urine Bilirubin (NEGATIVE) Urine Urobilinogen (0.2-1.0) E.U./dL Ur Leukocyte Esterase (NEGATIVE) Urine RBC /HPF Urine WBC /HPF Ur Epithelial Cells /LPF Urine Bacteria (NONE TO FEW) /HPF Urine Other Urine Opiates Screen (NEGATIVE) Ur Buprenorphine Scrn (NEGATIVE) Ur Oxycodone Screen (NEGATIVE) Ur EDDP (Meth Metab) (NEGATIVE) Ur Barbiturates Screen (NEGATIVE) Ur Tricyclics Screen (NEGATIVE) Ur Amphetamine Screen (NEGATIVE) U Methamphetamines Scrn (NEGATIVE) Urine MDMA Screen (NEGATIVE) U Benzodiazepines Scrn (NEGATIVE) U Cocaine Metab Screen (NEGATIVE) U Marijuana (THC) Screen (NEGATIVE) Ethyl Alcohol 0.002 (0.000-0.080) g/dL SARS-CoV-2 RNA (ELIANA) (NEGATIVE) MARCELINO Results - Last 24 hrs: Microbiology 01/08/21 23:45 Aerobic Blood Culture - Preliminary Blood - Venous - Lab Draw NO GROWTH AFTER 1 DAY Anaerobic Blood Culture - Preliminary NO GROWTH AFTER 1 DAY 01/08/21 00:15 Influenza Type A Antigen Screen - Final Nasal, Unspecified NEGATIVE INFLUENZA A VIRUS AG REFERENCE RANGE: NEGATIVE Influenza Type B Antigen Screen - Final NEGATIVE INFLUENZA B VIRUS AG REFERENCE RANGE: NEGATIVE Med Orders - Current: Current Medications Discontinued Medications Levetiracetam (Levetiracetam 500 Mg Tab) 1,500 mg PO ONETIME ONE Stop: 01/09/21 01:10 Last Admin: 01/09/21 01:32 Dose: 1,500 mg Documented by: Levetiracetam (Levetiracetam 500 Mg Tab) 500 mg PO BID [facility] Last Admin: 01/09/21 07:26 Dose: 500 mg Documented by: Magnesium Oxide (Magnesium Oxide 400 Mg Tab) 400 mg PO BID [facility] Last Admin: 01/09/21 07:26 Dose: 400 mg Documented by: Sodium Chloride (Sodium Chloride 0.9% 10 Ml Syringe) 10 ml FLUSH ASDIRECTED PRN PRN Reason: Keep Vein Open - Exam General: Reports: Alert, Oriented HEENT: Reports: Pupils Equal, Pupils Reactive, EOMI, Mucous Membr. Moist/[place]ck: Reports: Supple Lungs: Reports: Clear to Auscultation, Normal Respiratory Effort Cardiovascular: Reports: Regular Rate, Regular Rhythm GI/Abdominal Exam: Normal Bowel Sounds, Soft, Non-Tender, No Distention, No Mass (Male) Exam: Deferred Rectal (Males) Exam: Deferred Back Exam: Reports: Normal Inspection, Full Range of Motion Extremities: Normal Inspection, Normal Range of Motion, Non-Tender, No Pedal Edema, Normal Capillary Refill Skin: Reports: Warm, Dry, Intact Neurological: Reports: No New Focal Deficit
== END 2021-01-09 11:25 | disposition home or self-care (01) ==
LOC: LL.ED 22:54 → LL.MS 01-09 01:33
PROVIDERS: ADMIT Physician Assistant; ATTEND Physician Assistant
DX: R56.9 Unspecified convulsions (principal); Z79.899 Other long term (current) drug therapy; Z20.822 Contact with and (suspected) exposure to COVID-19
CPT/HCPCS: 36415; 70450; 71045; 80053; 80179; 80305-QW; 80307; 81001; 83605; 83735; 84100; 84443; 84484; 85025; 86140; 87040; 87804; 93005; 93010; 99235; 99285-25; A9270-GY; G0378; U0002

== ENCOUNTER 2021-04-30 09:44 | Emergency (ER) | payer OTHER ==
[2021-04-30] MEDS: levETIRAcetam in NaCl (iso-os) 500 MG in Premix Bag 1 BAG IV ONE ×4 (10:25→10:26)
[2021-04-30] MEDS: Sodium Chloride 0.9% 10 ML Syringe FLUSH PRN (10:34)
[2021-04-30 10:47] LABS: CHLORIDE,CL 100 mmol/L (98-107); SODIUM,NA 135 mmol/L (136-145)
[2021-04-30 10:51] LABS: ANION GAP 12.3 meq/L (7-15)
[2021-04-30] MEDS: Magnesium Oxide 400 MG Tab PO ONE (12:00)
[2021-04-30 12:09] LABS: BARBITURATE SCREEN,URINE NEGATIVE (NEGATIVE); BENZODIAZEPINES SCREEN,URINE NEGATIVE (NEGATIVE); EDDP,URINE SCREEN NEGATIVE (NEGATIVE); TCA SCREEN,URINE NEGATIVE (NEGATIVE); THC SCREEN,URINE 50 NG/ML NEGATIVE (NEGATIVE)
[2021-04-30 12:11] LABS: BUPRENORPHINE SCREEN,URINE NEGATIVE (NEGATIVE)
== END 2021-04-30 12:10 | disposition home or self-care (01) ==
LOC: LL.ED 09:44
DX: R56.9 Unspecified convulsions (principal); E83.42 Hypomagnesemia; Z20.822 Contact with and (suspected) exposure to COVID-19
CPT/HCPCS: 36415; 70450; 80053; 80305-QW; 80307; 81001; 83735; 85025; 96374; 99284; 99284-25; A9270-GY; J1953; U0002